=== PATIENT | male | born 1985 | race Caucasian/White ===

== ENCOUNTER 2018-11-11 09:49 | Emergency (ER) | payer OTHER ==
[2018-11-11 10:19] VITALS: BP 127/88
--- NOTE | 2018-11-11 10:48 | UC ---
UC General HPI - HPI Summary HPI Summary: Here with burning with urination x 5 days - today pain more significantlyl worse. Itching in penile area as well. No low back pain. No N/V. No fever. Is sexually active and uses protection but would like to be tested for STIs. No fever. Had UTI about 2 years ago. No hx of kidney stones. Hx of surgery as a baby - states they did a procedure where they went through his penis. Meds; REviewed No rectal pain - History of Current Complaint Chief Complaint: UCGU Stated Complaint: BURNING URINATION Time Seen by Provider: 11/11/18 10:36 Pain Intensity: 6 - Allergy/Home Medications Allergies/Adverse Reactions: Allergies Allergy/AdvReac Type Severity Reaction Status Date / Time Sulfa (Sulfonamide Allergy unk Verified 11/11/18 10:20 Antibiotics) Home Medications: Home Medications Duloxetine HCl 1 tab PO DAILY 11/11/18 [History Confirmed 11/11/18] Propranolol TAB* [Inderal TAB*] 1 tab PO DAILY 11/11/18 [History Confirmed 11/11] PMH/Surg Hx/FS Hx/Imm Hx Previously Healthy: Yes - Surgical History Surgical History: Yes Surgery Procedure, Year, and Place: eye bladder - Social History Alcohol Use: Rare Substance Use Type: None Smoking Status (MU): Never Smoked Tobacco Review of Systems All Other Systems Reviewed And Are Negative: Yes Genitourinary: Positive: Dysuria Physical Exam Triage Information Reviewed: Yes Appearance: Well-Appearing Vital Signs: Initial Vital Signs Temp 97.3 F 11/11/18 10:17 Pulse 57 11/11/18 10:17 Resp 16 11/11/18 10:17 BP 127/88 11/11/18 10:17 Pulse Ox 100 11/11/18 10:17 Vital Signs Reviewed: Yes Neck: Positive: Supple Respiratory: Positive: Chest non-tender, Lungs clear Cardiovascular: Positive: RRR, No Murmur Abdomen Description: Positive: Other: - No CVA tenderness Male Genital Exam: Positive: Other - no gential/penile lesions or masses Course/Dx - Course Course Of Treatment: This is a 33 yr old with dysuria with what is presumably a history of posterior urethral valves s/p repair Plan Start macrobid as prescribed We will contact you if you need to change antibiotic or if your STI testing is positive Recommend establishing with a urologist with your history If symptoms persist or worsen, recommend follow up with your PCP or seeing a urologist - Diagnoses Provider Diagnosis: Acute cystitis Discharge - Sign-Out/Discharge Documenting (check all that apply): Patient Departure All imaging exams completed and their final reports reviewed: No Studies - Discharge Plan Condition: Good Disposition: HOME Prescriptions: Nitrofurantoin Monohyd/M-Cryst [Macrobid 100 mg Capsule] 100 mg PO BID #10 cap Patient Education Materials: Urinary Tract Infection in Men (ED) Referrals: [facility] [Outside] No Primary Care Phys,NOPCP [Primary Care Provider] - Christopher Donnelly MD [Medical Doctor] - Additional Instructions: Start macrobid as prescribed We will contact you if you need to change antibiotic or if your STI testing is positive Recommend establishing with a urologist with your history If symptoms persist or worsen, recommend follow up with your PCP or seeing a urologist - Billing Disposition and Condition Condition: GOOD Disposition: Home
[2018-11-12 13:23] LABS: Neisseria gonorrhoeae (GC) RNA Negative (Negative)
== END 2018-11-11 11:10 | disposition home or self-care (01) ==
LOC: UCEAST 09:49
DX: N30.00 Acute cystitis without hematuria (principal); Z88.2 Allergy status to sulfonamides
CPT/HCPCS: 81003; 87086; 87491; 87591; 99212; G0463

== ENCOUNTER 2019-04-07 09:10 | Emergency (ER) | payer OTHER ==
--- OUTSIDE RECORDS SUMMARY | 2019-04-07 09:15 | XMS REPORT | Continuity of Care Document ---
:1985 External Reference #:[id number] Author Name Candelaria Espino MD (transmitted by agent of provider Mikaela Love) Address [address], [address] [place] [address] Care Team Providers Name Role Phone Mabel Perez M.D. 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 [phone] Problems Active Problems Provider Date Essential hypertension Riky Vargas M.D.,FACP Onset: 01/12/2018 Anxiety state Riky Vargas M.D.,FACP Onset: 01/12/2018 Migraine without aura, not refractory Riky Vargas M.D.,FACP Onset: Social History Type Date Description Comments Sex Unknown Tobacco Use Start: Unknown Never Smoked Cigarettes Smoking Status Reviewed: 03/25/19 Never Smoked Cigarettes ETOH Use 01/12/2018 Occasionally consumes alcohol Tobacco Use Start: Unknown Patient has never smoked Recreational Drug Use Denies Drug Use Allergies, Adverse Reactions, Alerts Active Allergies Reaction Severity Comments Date Sulfa Antibiotics Moderate 01/12/2018 Medications Active Medications SIG Qnty Indications Ordering Provider Date Duloxetine HCL Take 1 Capsule By lukas Perez MD 04/20/2018 40mg Mouth Every Day Caps DR Butler In The Morning Propranolol HCL take one tablet Unknown 20mg by mouth twice a Tablets day Clonazepam two times daily 30tabs Mabel Perez MD 1mg Tablets as needed Excedrin Extra prn Unknown Strength [phone] Tablets Multi For Him daily Unknown Tablets Immunizations Description No Information Available Vital Signs Date Vital Result Comment 03/25/2019 10:48am Height 74.25 inches 6'2.25" Weight 214.00 lb Heart Rate 54 /min BP Systolic 120 mmHg BP Diastolic 70 mmHg O2 % BldC Oximetry 96 % BMI (Body Mass Index) 27.3 kg/m2 01/25/2019 9:05am Height 74.25 inches 6'2.25" Weight 216.12 lb Heart Rate 72 /min BP Systolic 120 mmHg BP Diastolic 70 mmHg O2 % BldC Oximetry 96 % BMI (Body Mass Index) 27.6 kg/m2 Results Test Acquired Date Facility Test Result H/L Range Note Basic Metabolic 01/19/2019 [facility] Sodium 140 mmol/L Normal 135-145 [address] [place] [address] [phone] Potassium 4.3 mmol/L Normal 3.5-5.0 Chloride 105 mmol/L Normal 101-111 Co2 Carbon Dioxide 28 mmol/L Normal 22-32 Anion Gap 7 mmol/L Normal 2-11 Glucose 93 mg/dL Normal 70-100 Blood Urea Nitrogen 15 mg/dL Normal 6-24 Creatinine 0.99 mg/dL Normal 0.67-1.17 BUN/Creatinine Ratio 15.2 Normal 8-20 Calcium 9.9 mg/dL Normal 8.6-10.3 Egfr Non- 87.1 >60 Egfr 105.3 >60 1 Lipid Profile 01/19/2019 [facility] Triglycerides 125 mg/dL 2 (Trig/Chol/HDL) [address] [place] [address] [phone] Cholesterol 252 mg/dL 3 HDL Cholesterol 43.2 mg/dL 4 LDL Cholesterol 184 mg/dL 5 1 Because ethnic data is not always readily available, this report includes an eGFR for both -Americans and non- Americans. The National Kidney Disease Education Program (NKDEP) does not endorse the use of the MDRD equation for patients that are not between the ages of 18 and 70, are , have extremes of body size, muscle mass, or nutritional status, or are non- or non-. According to the National Kidney Foundation, irrespective of diagnosis, the stage of the disease is based on the level of kidney function: Stage Description GFR(mL/min/1.73 m(2)) 1 Kidney damage with normal or decreased GFR 90 2 Kidney damage with mild decrease in GFR 60-89 3 Moderate decrease in GFR 30-59 4 Severe decrease in GFR 15-29 5 Kidney failure <15 (or dialysis) 2 Desirable: <150 Borderline High: 150-199 High: 200-499 Very High: >500 3 Desirable: <200 Borderline High: 200-239 High: >239 4 Low: <40 Desirable: 40-60 High: >60 5 Desirable: <100 Near Optimal: 100-129 Borderline High: 130-159 High: 160-189 Very High: >189 Procedures Description No Information Available Medical Devices Description No Information Available Encounters Type Date Location Provider Dx Diagnosis Office Visit 01/25/2019 [facility] Internal Mabel Perez MD Z00.00 Encntr for general 9:00a Medicine - [facility] adult medical exam w/o abnormal findings I10 Essential (primary) hypertension E78.00 Pure hypercholesterolemia, unspecified Assessments Date Code Description Provider 03/25/2019 R06.83 Snoring Candelaria Espino MD 03/25/2019 R53.83 Other fatigue Candelaria Espino MD 01/25/2019 Z00.00 Encounter for general adult medical examination Mabel Perez MD without abnormal findings 01/25/2019 I10 Essential (primary) hypertension Mabel Perez MD 01/25/2019 E78.00 Pure hypercholesterolemia, unspecified Mabel Perez MD Plan of Treatment Future Appointment(s):04/27/2019 8:30 am - Livier Shanks NP at [facility]01/27/2020 2:20 pm - Mabel Perez MD [facility] Candelaria Espino MDR06.83 SnoringNew Orders:Home Sleep Testing, Ordered: 03/25/19Follow up:2 [id number] Other fatigue Functional Status Description No Information Available Mental Status Description No Information Available Referrals Refer to Dr Reason for Referral Status Appt Date Candelaria Espino MD Sent 03/25/[address] [place] [id number] [phone]
[2019-04-07 09:36] VITALS: BP 140/94
[2019-04-07] MEDS ORDERED: Triamcinolone Acetonide* 40 MG/ML 1 ML VIAL IM ONE (10:10)
--- NOTE | 2019-04-07 10:10 | UC ---
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 He has a 4-5 day history of nasal congestion bilateral ear pressure and pain as well as cough. He has not been febrile. He states he has had similar problems with his ears resolved with a steroid shot. - History of Current Complaint Chief Complaint: UCRespiratory Stated Complaint: URI Time Seen by Provider: 04/07/19 10:02 Hx Obtained From: Patient Onset/Duration: Gradual Onset, Lasting Days Timing: Constant Severity Initially: Mild Severity Currently: Moderate Pain Intensity: 4 Pain Scale Used: 0-10 Numeric Character: Cough: Nonproductive Aggravating Factors: Exertion, Deep Breaths Alleviating Factors: Nothing Associated Signs And Symptoms: Positive: URI, Nasal Congestion. Negative: Dyspnea, Fever, Chills, Pleuritic Chest Pain, Wheezing, Hemoptysis, Dizziness, Calf Pain, Calf Swelling, Edema, Hoarseness, Sinus Discomfort - Allergies/Home Medications Allergies/Adverse Reactions: Allergies Allergy/AdvReac Type Severity Reaction Status Date / Time Sulfa (Sulfonamide Allergy unk Verified 04/07/19 09:21 Antibiotics) PMH/Surg Hx/FS Hx/Imm Hx Previously Healthy: Yes Cardiovascular History: Hypertension - Surgical History Surgical History: Yes Surgery Procedure, Year, and Place: eye bladder - Family History Known Family History: Positive: Hypertension - Social History Alcohol Use: Rare Substance Use Type: None Smoking Status (MU): Never Smoked Tobacco Review of Systems All Other Systems Reviewed And Are Negative: Yes Constitutional: Positive: Negative Skin: Positive: Negative Eyes: Positive: Negative ENT: Positive: Ear Ache, Nasal Discharge, Sinus Congestion, Sinus Pain/ Tenderness Respiratory: Positive: Cough Cardiovascular: Positive: Negative Gastrointestinal: Positive: Negative Genitourinary: Positive: Negative Motor: Positive: Negative Neurovascular: Positive: Negative Musculoskeletal: Positive: Negative Neurological: Positive: Negative Psychological: Positive: Negative Physical Exam Triage Information Reviewed: Yes Appearance: Well-Appearing, No Pain Distress, Well-Nourished Vital Signs: Initial Vital Signs Temp 98.5 F 04/07/19 09:19 Pulse 87 04/07/19 09:19 Resp 16 04/07/19 09:19 BP 140/94 04/07/19 09:19 Pulse Ox 99 04/07/19 09:19 Vital Signs Reviewed: Yes Eyes: Positive: Conjunctiva Clear ENT: Positive: Nasal congestion, TM dull, Tonsillar swelling, Uvula midline. Negative: Hearing grossly normal, Nasal drainage, TMs normal - retracted bilat, TM bulging, TM red, Tonsillar exudate, Trismus, Muffled voice, Hoarse voice, Dental tenderness, Sinus tenderness Dental Exam: Normal Neck: Positive: Supple, Nontender, No Lymphadenopathy Respiratory: Positive: Chest non-tender, Lungs clear, Normal breath sounds, No respiratory distress Cardiovascular: Positive: RRR, No Murmur Musculoskeletal: Positive: ROM Intact, No Edema Neurological: Positive: Alert Psychological Exam: Normal Skin Exam: Normal Respiratory Course/Dx - Differential Dx/Diagnosis Provider Diagnosis: Bilateral serous otitis media, URI with cough and congestion Discharge ED - Sign-Out/Discharge Documenting (check all that apply): Patient Departure All imaging exams completed and their final reports reviewed: No Studies - Discharge Plan Condition: Stable Disposition: HOME Patient Education Materials: Serous Otitis Media (ED) Referrals: Mabel Perez MD [Primary Care Provider] - If Needed Additional Instructions: AFRIN NASAL SPRAY 2 sprays each nostril 3x day for three days saline nasal spray 2 sprays each nostril twice daily mucinex - Billing Disposition and Condition Condition: STABLE Disposition: Home
== END 2019-04-07 10:34 | disposition home or self-care (01) ==
LOC: UCEAST 09:10
DX: H65.93 Unspecified nonsuppurative otitis media, bilateral (principal); J06.9 Acute upper respiratory infection, unspecified; R05 Cough; R09.81 Nasal congestion; H92.03 Otalgia, bilateral; Z88.2 Allergy status to sulfonamides; I10 Essential (primary) hypertension; R09.89 Other specified symptoms and signs involving the circulatory and respiratory systems
CPT/HCPCS: 99211; G0463; J3301

== ENCOUNTER 2019-05-02 20:58 | Emergency (ER) | payer OTHER ==
--- OUTSIDE RECORDS SUMMARY | 2019-05-02 21:06 | XMS REPORT | Continuity of Care Document ---
:1985 External Reference #:[id number] Author Name Livier Shanks NP (transmitted by agent of provider Guera Lara) Address [address], [address] [place] [address] Care Team Providers Name Role Phone Mabel Perez M.D. 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 Problems Active Problems Provider Date Essential hypertension Riky Vargas M.D.,FACP Onset: 01/12/2018 Anxiety state Riky Vargas M.D.,FACP Onset: 01/12/2018 Migraine without aura, not refractory Riky Vargas M.D.,FACP Onset: Social History Type Date Description Comments Sex Unknown Tobacco Use Start: Unknown Never Smoked Cigarettes Smoking Status Reviewed: 04/27/19 Never Smoked Cigarettes ETOH Use 01/12/2018 Occasionally consumes alcohol Tobacco Use Start: Unknown Patient has never smoked Recreational Drug Use Denies Drug Use Allergies, Adverse Reactions, Alerts Active Allergies Reaction Severity Comments Date Sulfa Antibiotics Moderate 01/12/2018 Medications Active Medications SIG Qnty Indications Ordering Provider Date Duloxetine HCL take 1 capsule by lukas Avila, 04/20/2018 40mg mouth every day MD Parag Butler in the morning Propranolol HCL take one tablet Unknown 20mg by mouth twice a Tablets day Clonazepam two times daily 30tabs Mabel Perez MD 1mg Tablets as needed Excedrin Extra prn Unknown Strength [id number] Tablets Multi For Him daily Unknown Tablets Immunizations Description No Information Available Vital Signs Date Vital Result Comment 04/27/2019 8:08am Height 74.25 inches 6'2.25" Weight 222.25 lb Heart Rate 72 /min BP Systolic Sitting 128 mmHg Lue large cuff BP Diastolic Sitting 92 mmHg Lue large cuff O2 % BldC Oximetry 98 % On Ra BMI (Body Mass Index) 28.3 kg/m2 03/25/2019 10:48am Height 74.25 inches 6'2.25" Weight 214.00 lb Heart Rate 54 /min BP Systolic 120 mmHg BP Diastolic 70 mmHg O2 % BldC Oximetry 96 % BMI (Body Mass Index) 27.3 kg/m2 Results Test Acquired Date Facility Test Result H/L Range Note Basic Metabolic 01/19/2019 [facility] Sodium 140 mmol/L Normal 135-145 [address] [place] [address] [phone] Potassium 4.3 mmol/L Normal 3.5-5.0 Chloride 105 mmol/L Normal 101-111 Co2 Carbon Dioxide 28 mmol/L Normal 22-32 Anion Gap 7 mmol/L Normal 2-11 Glucose 93 mg/dL Normal 70-100 Blood Urea Nitrogen 15 mg/dL Normal 6-24 Creatinine 0.99 mg/dL Normal 0.67-1.17 BUN/Creatinine Ratio 15.2 Normal 8-20 Calcium 9.9 mg/dL Normal 8.6-10.3 Egfr Non- 87.1 >60 Egfr 105.3 >60 1 Lipid Profile 01/19/2019 [facility] Triglycerides 125 mg/dL 2 (Trig/Chol/HDL) [address] [place] [address] [phone] Cholesterol 252 mg/dL 3 HDL Cholesterol 43.2 [...] 130-159 High: 160-189 Very High: >189 Procedures Date Code Description Status 04/05/2019 87101 Sleep Study Unattended,HRT Rate,Oxygen Sat,Resp Completed Effort/Airflow Medical Devices Description No Information Available Encounters Type Date Location Provider Dx Diagnosis Office Visit 03/25/2019 [facility] Candelaria Espino MD R06.83 Snoring 11:00a [facility] R53.83 Other fatigue Office Visit 01/25/2019 9:00a [facility] Internal Mabel Perez MD Z00.00 Encntr for Medicine - [facility] general adult medical exam w/o abnormal findings I10 Essential (primary) hypertension E78.00 Pure hypercholesterolemia, unspecified Assessments Date Code Description Provider 04/27/2019 G47.33 Obstructive sleep apnea (adult) (pediatric) Livier Shanks NP 04/27/2019 R53.83 Other fatigue Livier Shanks NP 04/05/2019 G47.33 Obstructive sleep apnea (adult) (pediatric) Candelaria Espino MD 03/25/2019 R06.83 Snoring Candelaria Espino MD 03/25/2019 R53.83 Other fatigue Candelaria Espino MD 01/25/2019 Z00.00 Encounter for general adult medical Mabel Perez MD examination without abnormal findings 01/25/2019 I10 Essential (primary) hypertension Mabel Perez MD 01/25/2019 E78.00 Pure hypercholesterolemia, unspecified Mabel Perez MD Plan of Treatment Future Appointment(s):06/10/2019 9:00 am - Livier Shanks NP at [facility]01/27/2020 2:20 pm - [facility] Livier Shanks NPG47.33 Obstructive sleep apnea (adult) (pediatric)New Orders:Sleep-Homecare, Scheduled : 04/27/19Follow up:6 weeksRecommendations:You are being set up with CPAP for your sleep apnea through [facility] . 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 If you have difficulty with your equipment, or need to replace your mask or hoses, please contact your homecare agency. If you have any further questions, please call the [facility] at [phone] Ifyou have any sleepiness while driving you MUST avoid operating a vehicle or machinery. 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 If you know you are sleepy and need togo somewhere, arrange for a ride or use public transportation. It is very important to not risk yoursafety or the safety of others.R53.83 Other fatigue Functional Status Description No Information Available Mental Status Description No Information Available Referrals Refer to Reason for Referral Status Appt Candelaria Espino MD Sent 03/25/[address] [place] [address] [phone]
[2019-05-02 21:15] VITALS: BP 150/103
--- NOTE | 2019-05-02 21:26 | UC ---
Bite Injury/Animal HPI - HPI Summary HPI Summary: The patient is a 33-year-old male that presents here with multiple dog bites after breaking up a fight between his 2 dogs. He thinks his last tetanus shot was greater than 10 years ago. He has multiple puncture wounds to his right and left forearms as well as his left hand. He cleaned them at home with soap and water. - History of Current Complaint Chief Complaint: UCBiteInjury Stated Complaint: DOG BITES Time Seen by Provider: 05/02/19 21:07 Hx Obtained From: Patient Severity Initially: Moderate Pain Intensity: 7 Pain Scale Used: 0-10 Numeric Onset/Duration: Sudden Onset, Lasting Hours Type of Bite: Animal Has Animal Been Immunized?: Yes Character: Puncture Aggravating Factor(s): Exertion Alleviating Factor(s): Rest Associated Signs And Symptoms: Positive: Swelling - dorsum of left hand. Negative: Fever, Erythema, Drainage, Lymphadenopathy, Numbness/Tingling, Limited ROM Hx of Bite: Provoked by: - breaking up dog fight Animal Available for Observation: Yes Animal Control Notified: Yes Body - Head: 1 - pw/swelling 2 - PW x 2 3 - PW - Allergies/Home Medications Allergies/Adverse Reactions: Allergies Allergy/AdvReac Type Severity Reaction Status Date / Time Sulfa (Sulfonamide Allergy unk Verified 05/02/19 21:15 Antibiotics) Home Medications: Home Medications Ibuprofen/Diphenhydramine HCl [Ibuprofen Pm 200-25 mg] 1 cap PO DAILY PRN [History Confirmed 05/02/19] PMH/Surg Hx/FS Hx/Imm Hx Previously Healthy: Yes Cardiovascular History: Hypertension - Surgical History Surgical History: Yes Surgery Procedure, Year, and Place: eye, bladder - Family History Known Family History: Positive: Hypertension - Social History Alcohol Use: Rare Substance Use Type: None Smoking Status (MU): Never Smoked Tobacco - Immunization History Most Recent Tetanus Shot: unknown Review of Systems All Other Systems Reviewed And Are Negative: Yes Constitutional: Positive: Negative Skin: Positive: Negative Eyes: Positive: Negative ENT: Positive: Negative Respiratory: Positive: Negative Cardiovascular: Positive: Negative Gastrointestinal: Positive: Negative Genitourinary: Positive: Negative Motor: Positive: Negative Neurovascular: Positive: Negative Musculoskeletal: Positive: Edema - surrounding bite dorsum of left hand- Neurological: Positive: Negative Psychological: Positive: Negative Physical Exam Triage Information Reviewed: Yes Appearance: Well-Appearing, No Pain Distress, Well-Nourished Vital Signs: Initial Vital Signs Temp 97.7 F 05/02/19 21:08 Pulse 82 05/02/19 21:08 Resp 16 05/02/19 21:08 BP 150/103 05/02/19 21:08 Pulse Ox 100 05/02/19 21:08 Vital Signs Reviewed: Yes Eyes: Positive: Conjunctiva Clear ENT: Positive: Hearing grossly normal. Negative: Nasal congestion, Nasal drainage, Tonsillar swelling, Tonsillar exudate, Sinus tenderness, Uvula midline Neck: Positive: Supple, Nontender, No Lymphadenopathy Respiratory: Positive: Lungs clear, Normal breath sounds, No respiratory distress, No accessory muscle use Cardiovascular: Positive: RRR, No Murmur Bowel Sounds: Positive: Present Musculoskeletal: Positive: ROM Intact, No Edema Neurological: Positive: Alert Psychological Exam: Normal Skin Exam: Other - see image Bite Injury Course/Dx - Differential Dx/Diagnosis Provider Diagnosis: Dog bite of right forearm, Dog bite of left hand, Dog bite of left forearm Discharge ED - Sign-Out/Discharge Documenting (check all that apply): Patient Departure All imaging exams completed and their final reports reviewed: No Studies - Discharge Plan Condition: Stable Disposition: HOME Prescriptions: Amoxicillin/Clavulanate TAB* [Augmentin TAB 875*] 875 mg PO BID #10 tab Patient Education Materials: Animal Bite (ED) Referrals: Mabel Perez MD [Primary Care Provider] - 4 Days (if not better) Additional Instructions: clean bites twice daily with soap and water the hand bites are especially concerning if they get infected recheck for increased pain/redness/pus/fever - Billing Disposition and Condition Condition: STABLE Disposition: Home
[2019-05-02] MEDS ORDERED: Tetan/Diph/Pertus SYR(Tdap)* 0.5 ML SYR(BOOSTRIX) use SYR contains LATEX IM ONE (21:33)
[2019-05-02] MEDS ORDERED: Amoxicillin/Clavulanate TAB* 875 MG PO ONE (21:34)
== END 2019-05-02 21:55 | disposition home or self-care (01) ==
LOC: UCEAST 20:58
DX: S51.852A Open bite of left forearm, initial encounter (principal); S51.851A Open bite of right forearm, initial encounter; S61.452A Open bite of left hand, initial encounter; I10 Essential (primary) hypertension; Z82.49 Family history of ischemic heart disease and other diseases of the circulatory system; Z88.2 Allergy status to sulfonamides; W54.0XXA Bitten by dog, initial encounter; Y92.9 Unspecified place or not applicable
CPT/HCPCS: 90715; 96372; 99212; A9270-GY; G0463